=== PATIENT | male | born 2000 | race Caucasian/White ===

== ENCOUNTER 2018-04-10 22:50 | Emergency (ER) | payer BC ==
--- NOTE | 2018-04-10 23:00 | EDPHY ---
H & P Time Seen by Provider: 04/10/18 22:55 HPI/ROS: Chief Complaint: Suicidal ideation HPI: 17-year-old male with a history of bipolar disorder is being brought in by police on a mental health hold. Patient had texted his mother that he was going to jump off of the top of a parking structure at [address] Patient has a history of suicide attempts in the past. He did run and evade police. He denies any injuries. He has been calm and cooperative. Patient states he has been compliant with his antipsychotic and Vistaril. ROS: 10 systems were reviewed and were negative except those elements noted in the HPI. PMH: Bipolar disorder Social History: Denies smoking, occasional alcohol Family History: non-contributory Physical Exam: Gen: Awake, Alert, No Distress HEENT: Nose: no rhinorrhea Eyes: PERRLA, EOMI Mouth: Moist mucosa Neck: Supple, no JVD Chest: nontender, lungs clear to auscultation Heart: S1, S2 normal, no murmur Abd: Soft, non-tender, no guarding Back: no CVA tenderness, no midline tenderness Ext: no edema, non-tender Skin: no rash Neuro: CN II-XII intact, Sensation grossly intact, Strength 5/5 in bilateral upper and lower extremities (Grayson Lacey) Constitutional: Initial Vital Signs Temperature (C) 36.7 C 04/10/18 23:00 Heart Rate 118 H 04/10/18 23:00 Respiratory Rate 18 04/10/18 23:00 Blood Pressure 127/78 H 04/10/18 23:00 O2 Sat (%) 97 04/10/18 23:00 O2 Delivery Mode Room Air Allergies/Adverse Reactions: No Known Allergies Allergy (Unverified 04/10/18 23:03) Home Medications: Medication Instructions Recorded ARIPiprazole 04/10/18 Vistaril 04/10/18 Medical Decision Making ED Course/Re-evaluation: Patient is medically cleared. Awaiting mental health evaluation. [address] patient [address] out to Dr. Dave pending mental health evaluation. No issues during my care this patient overnight. (Grayson Lacey) I took over care of this patient at 7:00 a.m.. This patient is on an M1 hold. The patient is here for suicidal ideation. The patient stated that he wanted to jump off of a parking structure. He denies suicidal ideation currently. He was brought in by police. He has a history of bipolar disorder. He is currently awaiting behavioral health evaluation. He has been medically cleared. 8:30 a.m., the patient has been seen and evaluated by Behavioral Health. The patient is not suicidal. [facility] provider has lifted the M1 hold. The patient will be discharged with a bus ticket back to [place]. He has been provided resources for follow-up. He feels comfortable with this plan. Return to emergency department precautions have been reviewed with him. All of his questions were answered. He was discharged from the emergency department in good condition. (Lilian Dave) - Data Points Laboratory Results: Laboratory Results 04/10/18 23:09 04/10/18 23:09 04/10/18 04/10/18 04/10/18 23:25 23:09 23:09 WBC 10.06 10^3/uL H 10^3/uL (3.80-9.50) RBC 5.06 10^6/uL 10^6/uL (4.40-6.38) Hgb 15.3 g/dL g/dL (13.7-17.5) Hct 44.3 % % (40.0-51.0) MCV 87.5 fL fL (81.5-99.8) MCH 30.2 pg pg (27.9-34.1) MCHC 34.5 g/dL g/dL (32.4-36.7) RDW 12.6 % % (11.5-15.2) Plt Count 270 10^3/uL 10^3/uL (150-400) MPV 9.1 fL fL (8.7-11.7) Neut % (Auto) 67.6 % % (39.3-74.2) Lymph % (Auto) 23.8 % % (15.0-45.0) [place] % (Auto) 7.2 % % (4.5-13.0) Eos % (Auto) 0.5 % L % (0.6-7.6) Baso % (Auto) 0.4 % % (0.3-1.7) Nucleat RBC Rel Count 0.0 % % (0.0-0.2) Absolute Neuts (auto) 6.81 10^3/uL H 10^3/uL (1.70-6.50) Absolute Lymphs (auto) 2.39 10^3/uL 10^3/uL (1.00-3.00) Absolute Monos (auto) 0.72 10^3/uL 10^3/uL (0.30-0.80) Absolute Eos (auto) 0.05 10^3/uL 10^3/uL (0.03-0.40) Absolute Basos (auto) 0.04 10^3/uL 10^3/uL (0.02-0.10) Absolute Nucleated RBC 0.00 10^3/uL 10^3/uL (0-0.01) Immature Gran % 0.5 % % (0.0-1.1) Immature Gran # 0.05 10^3/uL 10^3/uL (0.00-0.10) Sodium 140 mEq/L mEq/L (135-145) Potassium 3.8 mEq/L mEq/L (3.3-5.0) Chloride 102 mEq/L mEq/L (97-110) Carbon Dioxide 25 mEq/l mEq/l (22-31) Anion Gap 13 mEq/L mEq/L (6-14) BUN 17 mg/dL mg/dL (7-23) Creatinine 1.1 mg/dL mg/dL (0.7-1.3) Estimated GFR > 60 Glucose 110 mg/dL H mg/dL (70-100) Calcium 10.5 mg/dL H mg/dL (8.5-10.4) Urine Opiates Screen NEGATIVE (NEGATIVE) Urine Barbiturates NEGATIVE (NEGATIVE) Ur Phencyclidine Scrn NEGATIVE (NEGATIVE) Ur Amphetamine Screen NEGATIVE (NEGATIVE) U Benzodiazepines Scrn NEGATIVE (NEGATIVE) Urine Cocaine Screen NEGATIVE (NEGATIVE) U Marijuana (THC) Screen NEGATIVE (NEGATIVE) Ethyl Alcohol < 10 mg/dL mg/dL (0-10) Medications Given: Discontinued Medications Hydroxyzine HCl (Hydroxyzine Hcl) 25 mg PO EDNOW ONE Stop: 04/10/18 23:36 Last Admin: 04/10/18 23:56 Dose: 25 mg Departure - Departure Disposition: Home, Routine, Self-Care Clinical Impression: Situational depression Condition: Good Instructions: Depression (ED) Additional Instructions: Read and follow provided instructions. Follow-up with your primary care physician or Behavioral Health provider in 1-2 days for re-evaluation. Return to the emergency department for worsening symptoms, suicidal thoughts or other serious concerns. Referrals: [facility] [Outside] - As per Instructions
[2018-04-10 23:20] LABS: PLATELET COUNT 270 10^3/uL (150-400)
[2018-04-10] MEDS ORDERED: hydrOXYzine HCL 25 MG TAB PO ONE (23:35)
[2018-04-11 08:37] VITALS: BP 110/75
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
--- NOTE | 2018-04-11 09:21 | ASMTTCLDSP ---
TLC Discharge Disposition Disposition: Answers: Discharge If Answers: Yes DISCHARGED: Patient/family given suicide hotline info & [facility] brochure? Disposition Notes: Notes: Pt stated commitment or ability to keep self safe, denied thoughts of self harm or harm to others. Pt was given local hotline information and [employer] brochure After an Attempt and provided with bus ticket to get back to [place] so that he can utilize his bus ticket from [place] to [place] where he has friends he plans to stay with. Discharge Concerns/Recommendations: Notes: In consultation with [facility] ED physician, Felicitas Dave MD, Dr. Dave concurred that pt does not appear to meet 27-65 criteria requiring psychiatric hospitalization as pt does not appear to be an imminent risk of harm to self/others/gravely disabled due to a mental illness condition. Dr. Buchanan provided verbal order read back vacating M1 hold at 0820 hrs. Was patient given the Answers: Not applicable Inpatient Behavioral Health Prohibited Belongings List while in the ED? Psychiatrist vacating M1 Felicitas Dave MD Hold: Date and time M1 hold 04/11/2018 08:20 AM vacated (time format is hh:mm): Type of Hold: Answers: M1/72-hour Hold Hold initiated by: Answers: Police Date Signed: 04/11/2018 09:20 AM Electronically Signed By:Sohail Tsai
== END 2018-04-11 08:41 | disposition home or self-care (01) ==
DX: F43.21 Adjustment disorder with depressed mood (principal); R45.851 Suicidal ideations
CPT/HCPCS: 80305; G0480